=== PATIENT | male | born 1935 | race Caucasian/White ===

== ENCOUNTER 2016-07-06 07:01 | Emergency (ER) | payer MEDICARE ==
[2016-07-06 07:08] VITALS: PULSE 57; RESP 16; TEMP 96
[2016-07-06] MEDS ORDERED: SODIUM CHLORIDE 0.9% 1,000 ML IV STA (07:48)
--- NOTE | 2016-07-06 07:50 | ED ---
Recheck HPI - General Chief Complaint: Recheck/Abnormal Lab/Rx Stated Complaint: High Blood Pressure Time Seen by Provider: 07/06/16 07:25 Source: patient, RN notes reviewed Mode of arrival: ambulatory Limitations: no limitations - History of Present Illness Initial Comments: Is a 81-year-old male with a history of hypertension and heart valve replacement a year ago who states he was awakened this morning by ringing in his ears which is new Hern[place] of elevated blood pressure. He took his blood pressure home was 208/105 he denies any headache dizziness blurry vision nausea vomiting or other symptoms. Recently placed on increased dose of Norvasc 5 mg twice a day and senna once a day. He did not take his medication this morning. He does state the ringing has gotten better and he has noticed his blood pressure has improved after arrival to the emergency department. Complaint: other - Related Data Home Medications Medication Instructions Recorded Confirmed ALPRAZolam [Xanax] 0.25 mg PO DAILY PRN 06/25/13 07/06/16 Aspirin 81 mg PO DAILY 06/25/13 07/06/16 Atorvastatin [Lipitor] 20 mg PO HS 06/25/13 07/06/16 Dutasteride [Avodart] 0.5 mg PO DAILY 06/25/13 07/06/16 Tamsulosin HCl [Flomax] 0.4 mg PO DAILY 06/25/13 07/06/16 Ascorbic Acid [Vitamin C] 1,000 mg PO BID 07/31/15 07/06/16 Clopidogrel Bisulfate [Plavix] 75 mg PO DAILY 07/31/15 07/06/16 Furosemide [Lasix] 40 mg PO DAILY 07/31/15 07/06/16 Losartan [Cozaar] 50 mg PO DAILY 07/31/15 07/06/16 Ranitidine HCl [Zantac] 300 mg PO DAILY 07/31/15 07/06/16 Warfarin [Coumadin] 5 mg PO SUTUWETHSA 07/31/15 07/06/16 Warfarin [Coumadin] 7.5 mg PO MOFR 07/31/15 07/06/16 amLODIPine [Norvasc] 5 mg PO BID 07/31/15 07/06/16 Potassium Chloride ER [K-Dur 20] 20 meq PO DAILY 07/06/16 07/06/16 Allergies Allergy/AdvReac Type Severity Reaction Status Date / Time No Known Allergies Allergy Verified 07/06/16 07:08 Review of Systems ROS Statement: Those systems with pertinent positive or pertinent negative responses have been documented in the HPI. ROS Other: All systems not noted in ROS Statement are negative. 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12 History of Any Multi-Drug Resistant Organisms: None Reported Past Surgical History: Appendectomy, Back Surgery, Bowel Resection, Cardiac Valve Replacement, Heart Catheterization With Stent, Tonsillectomy Additional Past Surgical History / Comment(s): bovine aortic valve 2000 AND JUNE 19 HAD TAVR PROCEDURE, hiatal hernia repair, SKIN CANCER REMOVED FROM NECK, Past Anesthesia/Blood Transfusion Reactions: No Reported Reaction Date of Last Stent Placement:: APRIL 2015 Past Psychological History: Anxiety Additional Psychological History / Comment(s): PT LIVES AT HOME WITH HIS , W[place] IN [facility]. 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 NO SERVICE. Smoking Status: Former smoker Past Alcohol Use History: Occasional Additional Past Alcohol Use History / Comment(s): STARTED SMOKING AT AGE 16 SMOKED 40 YEARS .SMOKED LESS THAN 1 PPD. Past Drug Use History: None Reported - Past Family History Mother Family Medical History: Cancer Additional Family Medical History / Comment(s): BREAST CANCER Father Additional Family Medical History / Comment(s): IN HIS SLEEP AT AGE 96 General Exam - General Exam Comments Initial Comments: This is a well-developed well-nourished awake alert oriented 3 male Limitations: no limitations General appearance: alert, in no apparent distress Head exam: Present: atraumatic, normocephalic, normal inspection Eye exam: Present: normal appearance, PERRL, EOMI. Absent: scleral icterus, conjunctival injection, periorbital swelling ENT exam: Present: normal exam, mucous membranes moist Neck exam: Present: normal inspection. Absent: tenderness, meningismus, lymphadenopathy Respiratory exam: Present: normal lung sounds bilaterally. Absent: respiratory distress, wheezes, rales, rhonchi, stridor Cardiovascular Exam: Present: regular rate, normal rhythm, normal heart sounds. Absent: systolic murmur, diastolic murmur, rubs, gallop, clicks GI/Abdominal exam: Present: soft, normal bowel sounds. Absent: distended, tenderness, guarding, rebound, rigid Extremities exam: Present: normal inspection, full ROM, normal capillary refill. Absent: tenderness, pedal edema, joint swelling, calf tenderness Back exam: Present: normal inspection Neurological exam: Present: alert, oriented X3, CN II-XII intact Psychiatric exam: Present: normal affect, normal mood Skin exam: Present: warm, dry, intact, normal color. Absent: rash Course Vital Signs 07/06/16 07/06/16 07/06/16 07:04 07:22 08:23 Temperature 96.0 F L Pulse Rate 57 L Respiratory 16 Rate Blood Pressure 208/92 205/95 144/75 O2 Sat by Pulse 95 Oximetry Medical Decision Making - Medical Decision Making I did a long discussion with the patient regarding the findings patient's asymptomatic. No fevers chills sweats no cough or phlegm production he did have some small amount of heartburn after eating some heavy food yesterday which did resolve with Tums. He would like to go home he'll be discharged she was cautioned about recurrent heartburn to get reevaluated also. Starts developing a fever or cough or chills or sweats to seek reevaluation. His blood pressure has been very well he will take his medication when he gets home he is instructed to increase his oral fluids. - Lab Data Result diagrams: 07/06/16 08:35 07/06/16 08:35 Lab Results 07/06/16 07/06/16 07/06/16 Range/Units 08:35 08:35 08:35 WBC 5.7 (3.8-10.6) k/uL RBC 4.41 (4.30-5.90) m/uL Hgb 11.3 L (13.0-17.5) gm/dL Hct 36.5 L (39.0-53.0) % MCV 82.8 (80.0-100.0) fL MCH 25.6 (25.0-35.0) pg MCHC 30.9 L (31.0-37.0) g/dL RDW 16.6 H (11.5-15.5) % Plt Count 238 (150-450) k/uL Neutrophils % 63 % Lymphocytes % 16 % Monocytes % 10 % Eosinophils % 7 % Basophils % 1 % Neutrophils # 3.6 (1.3-7.7) k/uL Lymphocytes # 0.9 L (1.0-4.8) k/uL Monocytes # 0.6 (0-1.0) k/uL Eosinophils # 0.4 (0-0.7) k/uL Basophils # 0.1 (0-0.2) k/uL Hypochromasia Moderate Anisocytosis Slight Sodium 143 (137-145) mmol/L Potassium 4.1 (3.5-5.1) mmol/L Chloride 109 H (98-107) mmol/L Carbon Dioxide 26 (22-30) mmol/L Anion Gap 8 mmol/L BUN 26 H (9-20) mg/dL Creatinine 0.90 (0.66-1.25) mg/dL Est GFR (MDRD) Af Amer >60 (>60 ml/min/1.73 sqM) Est GFR (MDRD) Non-Af >60 (>60 ml/min/1.73 sqM) Glucose 106 H (74-99) mg/dL Calcium 9.4 (8.4-10.2) mg/dL Total Bilirubin 0.6 (0.2-1.3) mg/dL AST 18 (17-59) U/L ALT 28 (21-72) U/L Alkaline Phosphatase 51 (38-126) U/L Total Creatine Kinase 86 (55-170) U/L CK-MB (CK-2) 1.1 (0.0-2.4) ng/mL CK-MB (CK-2) Rel Index 1.3 Troponin I 0.017 (0.000-0.034) ng/mL Total Protein 6.4 (6.3-8.2) g/dL Albumin 3.6 (3.5-5.0) g/dL - EKG Data -: EKG Interpreted by Me (Atrial fibrillation rate of 47 QRS 108 QT/QTC of 504/ 446. Bundle-branch bl) - Radiology Data Radiology results: report reviewed (I did review the imaging and report there is some evidence of a right perihilar density which could reflect an infiltrate) , image reviewed Disposition Clinical Impression: Hypertension, Dehydration Disposition: HOME SELF-CARE Condition: Good Instructions: Hypertension (ED), Dehydration (ED)
[2016-07-06 08:44] LABS: Anisocytosis Slight; Basophils # (A) 0.1 k/uL (0-0.2); Basophils % (A) 1 %; CH 25.4; CHCM 30.6; Eosinophils # (A) 0.4 k/uL (0-0.7); Eosinophils % (A) 7 %; HCT 36.5 % (39.0-53.0); HDW 2.88; HGB 11.3 gm/dL (13.0-17.5); Hypochromasia Moderate; Luc % (Auto) 4; Lymphocytes # (A) 0.9 k/uL (1.0-4.8); Lymphocytes % (A) 16 %; MCH 25.6 pg (25.0-35.0); MCHC 30.9 g/dL (31.0-37.0); MCV 82.8 fL (80.0-100.0); Mean Platelet Volume 7.7; Monocytes # (A) 0.6 k/uL (0-1.0); Monocytes % (A) 10 %; Neutrophils # (A) 3.6 k/uL (1.3-7.7); Neutrophils % (A) 63 %; RBC 4.41 m/uL (4.30-5.90); RDW 16.6 % (11.5-15.5); WBC 5.7 k/uL (3.8-10.6); WBC (Perox) 5.67
--- NOTE | 2016-07-06 08:50 | XR ---
EXAMINATION TYPE: XR chest 2V DATE OF EXAM: 07/06/2016 8:47 AM COMPARISON: 07/31/2015 HISTORY: Shortness of breath TECHNIQUE: Frontal and lateral views of the chest are obtained. FINDINGS: Scattered senescent parenchymal changes noted. Hyperinflation compatible with COPD. Patchy right perihilar density may reflect developing infiltrate. Correlate clinically and progress s tudies are recommended. No evidence for atelectasis. Heart size is enlarged without evidence for overt failure. Mediastinal structures are stable and grossly unremarkable. No evidence for hilar prominence. Degenerative changes dorsal spine. IMPRESSION: 1. Patchy right perihilar density may reflect developing infiltrate. Correlate clinically and progres s studies are recommended.
[2016-07-06 08:53] LABS: ALT 28 U/L (21-72); AST 18 U/L (17-59); Alkaline Phosphatase 51 U/L (38-126); Anion Gap 8 mmol/L; Blood Urea Nitrogen 26 mg/dL (9-20); Calcium 9.4 mg/dL (8.4-10.2); Carbon Dioxide 26 mmol/L (22-30); Chloride 109 mmol/L (98-107); Glucose 106 mg/dL (74-99); Non-African American GFR(MDRD) >60 (>60 ml/min/1.73 sqM); Potassium 4.1 mmol/L (3.5-5.1); Sodium 143 mmol/L (137-145); Total Bilirubin 0.6 mg/dL (0.2-1.3); Total Protein 6.4 g/dL (6.3-8.2)
[2016-07-06 09:21] LABS: Creatine Kinase MB 1.1 ng/mL (0.0-2.4); Troponin I 0.017 ng/mL (0.000-0.034)
[2016-07-06 10:26] LABS: INR 2.9 (<1.1); Prothrombin Time 27.8 sec (9.0-12.0)
[2016-07-06] MEDS ORDERED: LOSARTAN 50 MG TAB PO STA (10:49)
[2016-07-06] MEDS ORDERED: FUROSEMIDE 40 MG TAB PO STA (10:49)
[2016-07-06] MEDS ORDERED: amLODIPine 5 MG TAB PO STA (10:49)
[2016-07-06 11:30] VITALS: BP 161/78
== END 2016-07-06 11:40 | disposition home or self-care (01) ==
LOC: EC 07:01
DX: I10 Essential (primary) hypertension (principal); E86.0 Dehydration; I48.91 Unspecified atrial fibrillation; E78.5 Hyperlipidemia, unspecified; M79.9 Soft tissue disorder, unspecified; N42.9 Disorder of prostate, unspecified; Z87.891 Personal history of nicotine dependence; Z79.82 Long term (current) use of aspirin; Z79.02 Long term (current) use of antithrombotics/antiplatelets; Z79.01 Long term (current) use of anticoagulants; Z79.899 Other long term (current) drug therapy; Z85.820 Personal history of malignant melanoma of skin; Z85.038 Personal history of other malignant neoplasm of large intestine; Z95.5 Presence of coronary angioplasty implant and graft
CPT/HCPCS: 36415; 71020; 80053; 82550; 82553; 84484; 85025; 85610; 93005; 96360; 96361; 99284

== ENCOUNTER → 2016-12-13 | Outpatient (CLI) | payer MEDICARE ==
[2016-12-13 10:48] LABS: Blood Urea Nitrogen 25 mg/dL (9-20); Non-African American GFR(MDRD) >60 (>60 ml/min/1.73 sqM)
--- NOTE | 2016-12-13 15:13 | NM ---
EXAMINATION TYPE: NM bone scan whole body DATE OF EXAM: 12/13/2016 COMPARISON: CT abdomen pelvis same date HISTORY: Prostate carcinoma, C 61.0 Delayed whole-body scanning was performed following the injection of 23.9 mCi Tc 99m MDP. Images acq uired 4 hours post injection. FINDINGS: There is uptake within the, ankles, knees, shoulders compatible with probable degenerative change. So ft tissue uptake is normal. Mild uptake in the spine likely due to degenerative disc disease, facet a rthropathy. IMPRESSION: No abnormal uptake to suggest metastatic disease. 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
--- NOTE | 2016-12-13 15:13 | CT ---
EXAMINATION TYPE: CT abdomen pelvis w con DATE OF EXAM: 12/13/2016 COMPARISON: NONE INDICATION: prostate ca, hx colon ca DLP: 2401.40 mGycm, Automated exposure control for dose reduction was used. CONTRAST: 100 mL of Omnipaque 300. Study performed with Oral Contrast TECHNIQUE: Axial images were obtained from above the diaphragm to the pubic rami in the axial plane a t 5 mm thick sections. Reconstructed images are reviewed on the computer in the coronal plane. FINDINGS: Limited CT sections are obtained the lung bases. Scattered subsegmental atelectasis may be present. A 0.4 cm nodules in the posterior left lung base. Series 4 image 3.. Coronary artery calcification i s present. Cardiomegaly is present. Hiatal hernia with reflux is present. CT ABDOMEN: Liver: There is mild fatty infiltration of the liver. Spleen: Normal Pancreas: Normal Adrenal glands: The adrenal glands are normal. Gallbladder: Normal Kidneys: No masses are evident. No hydronephrosis is present. There is a 1.7 cm cyst on the superio r lateral anterior left kidney measuring 6 Hounsfield units. There is likely a nonobstructing 0.3 cm calcification in the lateral mid right kidney. Delayed images were obtained through the kidneys, whi ch remain unremarkable. Aorta: Vascular calcification is within the aorta. Inferior vena cava: Normal. CT PELVIS: There is a left inguinal low-density collection measuring approximately 2.1 x 4.3 cm in si ze and measuring 4 Hounsfield units. Loops of bowel within the abdomen and pelvis are normal. Loops of bowel distended with oral contr ast are normal. Fecal debris is within the colon. Appendix: Not visualized Urinary bladder: Normal. Genitourinary structures: Prostate is prominent. The patient reported prostate cancer is not readily apparent on the CT examination. Osseous structures: No suspicious lytic or sclerotic lesions. Facet changes are within the lumbar spi ne no definite metastatic lesions are identified. IMPRESSIONS: 1. No suspicious changes to suggest metastatic disease.
== END ==
LOC: RADNMMAIN 09:51
PROVIDERS: ATTEND Urology
DX: C61 Malignant neoplasm of prostate (principal)
CPT/HCPCS: 82565; 84520; 74177; 78306; A9503; Q9967

== ENCOUNTER → 2016-12-31 | Outpatient (CLI) | payer MEDICARE ==
--- NOTE | 2016-12-31 16:20 | BD ---
EXAMINATION TYPE: MG DEXA axial skeleton. DATE OF EXAM: 12/31/2016 COMPARISON: NONE CLINICAL HISTORY: 81 year-old male history of prostate cancer Height: 70.5 IN Weight: 274 LBS FRAX RISK QUESTIONS: Alcohol (3 or more units per day): NO Family History (Parent hip fracture): NO Glucocorticoids (More than 3mos): NO (Ex: prednisone, prednisolone, methylprednisolone, dexamethasone, and hydrocortisone). History of Fracture in Adulthood: NO Secondary Osteoporosis: 1. Type 1 Diabetes: NO 2. Hyperthyroidism: NO 3. Menopause before 45: N/A 4. Malnutrition: NO 5. Chronic liver disease: NO Rheumatoid Arthritis: NO Current Tobacco Use: NO RISK FACTORS HISTORY OF: Surgery to Spine: L-SPINE When: AGE 76 Active: YES MEDICATIONS: Additional Medications: CALCIUM, VIT D,ALPRAZOLAM, AMLODIPINE, ASCORBIC ACID,ASPIRIN, ATORVASTATIN,CL OPIDOGREL, DUTASTERIDE, FUROSEMIDE, LOSARTAN, POTASSIUM CHLORIDE, RANITIDINE, FLOMAX, WARFARIN, Additional History: COLON CANCER WITH CHEMO IN 1990PROSTATE CANCER AGE 81 EXAM MEASUREMENTS: Bone mineral densitometry was performed using the [employer] System. PT HAD SPINE SURGERY AGE 76 Bone mineral density about the R hip (g/cm2): 1.023 Bone mineral density about the L hip (g/cm2): 1.029 T Score values are as follows: -----R Neck: -0.1 -----L Neck: -0.1 -----R Total: 1.4 -----L Total: 1.1 Bone mineral density BASELINE IMPRESSION: Normal (Values between +1 and -1 indicate normal bone mass). Measurements not taken in the lumbar sp ine due to prior surgery. Consider repeating this study in 5 years or sooner if there is some new cli nical indication. NOTE: T-SCORE=SD OF THE YOUNG ADULT MEAN.
== END | disposition home or self-care (01) ==
LOC: RADBDWWP 12-19 10:20
PROVIDERS: ATTEND Urology
DX: C61 Malignant neoplasm of prostate (principal)
CPT/HCPCS: 77080

== ENCOUNTER 2017-09-25 04:01 | Emergency (ER) | payer MEDICARE ==
[2017-09-25] MEDS ORDERED: ALBUTEROL NEBULIZED 2.5 MG/3 ML INHALATION STA (04:28)
[2017-09-25] MEDS ORDERED: SODIUM CHLORIDE 0.9% 500 ML IV STA (04:28)
--- NOTE | 2017-09-25 04:34 | ED ---
General Adult HPI - General Chief complaint: Upper Respiratory Infection Stated complaint: Chest pain Time Seen by Provider: 09/25/17 04:10 Source: patient Mode of arrival: wheelchair Limitations: no limitations - History of Present Illness Initial comments: Venkatesh is an 82-year-old male who presents the emergency department today for evaluation of possible upper respiratory tract infection. Patient reports that he saw his primary care physician approximately a week ago and was treated with azithromycin for a possible upper respiratory infection as well as possible ear infection. Patient reports that since that time he has continued to have nasal congestion, postnasal drainage and over the past 2-3 days has developed a minimally productive cough. Patient reports that throughout the night tonight he had multiple episodes of coughing, he reports that upon coughing he had some sharp pains in his chest region very anxious. Patient states that due to his history of having 2 aortic valve replacements he is very nervous when he gets sick so he came to the ER for evaluation. Patient denies any fevers, chills, nausea, vomiting. He denies any exertional chest pain or shortness of breath. He describes his cough as a constant tickle in his throat and minimally productive cough. Her ports that he has a history of having sinusitis and problems with sinuses. He has been prescribed Flonase in the past but states that he has been only moderately compliant with it recently. He is not on any daily ALLERGY medications. He does state that when he was seen by his primary care physician he was told that he had significant postnasal drip. expresses concern that he may be developing pneumonia due to the persistence of his symptoms and reports that she encouraged him to come to the ER for evaluation of this. - Related Data Home Medications Medication Instructions Recorded Confirmed ALPRAZolam [Xanax] 0.25 mg PO DAILY PRN 06/25/13 09/25/17 Aspirin 81 mg PO DAILY 06/25/13 09/25/17 Atorvastatin [Lipitor] 20 mg PO HS 06/25/13 09/25/17 Dutasteride [Avodart] 0.5 mg PO DAILY 06/25/13 09/25/17 Tamsulosin HCl [Flomax] 0.4 mg PO DAILY 06/25/13 09/25/17 Ascorbic Acid [Vitamin C] 1,000 mg PO BID 07/31/15 09/25/17 Clopidogrel Bisulfate [Plavix] 75 mg PO DAILY 07/31/15 09/25/17 Furosemide [Lasix] 40 mg PO DAILY 07/31/15 09/25/17 Losartan [Cozaar] 50 mg PO DAILY 07/31/15 09/25/17 Ranitidine HCl [Zantac] 300 mg PO DAILY 07/31/15 09/25/17 Warfarin [Coumadin] 5 mg PO SUTUWETHSA 07/31/15 09/25/17 Warfarin [Coumadin] 7.5 mg PO MOFR 07/31/15 09/25/17 amLODIPine [Norvasc] 5 mg PO DAILY 07/31/15 09/25/17 Potassium Chloride ER [K-Dur 20] 20 meq PO DAILY 07/06/16 09/25/17 Bicalutamide 50 mg PO DAILY 09/25/17 09/25/17 Previous Rx's Medication Instructions Recorded Loratadine [Claritin] 10 mg PO DAILY #30 tab 09/25/17 Allergies Allergy/AdvReac Type Severity Reaction Status Date / Time No Known Allergies Allergy Verified 07/06/16 07:08 Review of Systems ROS Statement: Those systems with pertinent positive or pertinent negative responses have been documented in the HPI. ROS Other: All systems not noted in ROS Statement are negative. 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 History of Any Multi-Drug Resistant Organisms: None Reported Past Surgical History: Appendectomy, Back Surgery, Bowel Resection, Cardiac Valve Replacement, Heart Catheterization With Stent, Tonsillectomy Additional Past Surgical History / Comment(s): bovine aortic valve 2000 AND JUNE 19 HAD TAVR PROCEDURE, hiatal hernia repair, SKIN CANCER REMOVED FROM NECK, Past Anesthesia/Blood Transfusion Reactions: No Reported Reaction Date of Last Stent Placement:: APRIL 2015 Past Psychological History: Anxiety Smoking Status: Former smoker Past Alcohol Use History: Occasional Past Drug Use History: None Reported - Past Family History Mother Family Medical History: Cancer Additional Family Medical History / Comment(s): BREAST CANCER Father Additional Family Medical History / Comment(s): IN HIS SLEEP AT AGE 96 General Exam Limitations: no limitations General appearance: alert, in no apparent distress Head exam: Present: atraumatic, normocephalic Eye exam: Present: normal appearance, PERRL ENT exam: Present: other (Right TM is normal, left TM somewhat occluded by cerumen impaction) Neck exam: Present: normal inspection Respiratory exam: Present: wheezes Cardiovascular Exam: Present: regular rate, irregular rhythm GI/Abdominal exam: Present: soft. Absent: distended, tenderness Rectal exam: Present: deferred Extremities exam: Present: pedal edema Neurological exam: Present: alert, oriented X3 Psychiatric exam: Present: normal affect, normal mood Skin exam: Present: warm, dry Course Vital Signs 09/25/17 09/25/17 09/25/17 04:06 04:34 04:37 Temperature 97.8 F Pulse Rate 65 55 L Respiratory 20 18 Rate Blood Pressure 190/90 O2 Sat by Pulse 98 Oximetry 09/25/17 09/25/17 04:43 05:40 Temperature 98.4 F Pulse Rate 54 L 60 Respiratory 16 Rate Blood Pressure 163/74 O2 Sat by Pulse 99 Oximetry Medical Decision Making - Medical Decision Making Patient was seen and evaluated, history was obtained from the patient and his at bedside Patient with evidence of acute sinusitis, significant postnasal drip, cerumen impaction in the left ear Patient with no Sirs criteria. A nonproductive cough, no fevers or chills. Labs and imaging were ordered to evaluate for possible early pneumonia Chest x-ray with cardiomegaly and some fluid overload but no obvious pneumonia Labs and no significant abnormalities, INR 2.2 Results were discussed with the patient at bedside. At this time I feel the patient is suffering from sinusitis, with persistent cough due to postnasal drip. Patient admits to being minimally compliant with his Flonase which she has been prescribed. Patient is not on any ALLERGY medication. At this time I feel the patient would benefit from daily use of Flonase as well as an antihistamine such as Claritin. I discussed this with the patient and his who agree. Advised the patient that should he develop any worsening shortness of breath, productive cough, fevers, chest pain or any new or concerning symptoms he should return to the ER for reevaluation. Otherwise he should be reevaluated by his primary care physician tomorrow and all questions pertaining care were answered best my ability patient was discharged home in stable condition with prescriptions for Claritin as he has Flonase at home. - Lab Data Result diagrams: 09/25/17 04:18 09/25/17 04:18 Lab Results 09/25/17 09/25/17 09/25/17 Range/Units 04:18 04:18 04:18 WBC 6.5 (3.8-10.6) k/uL RBC 4.34 (4.30-5.90) m/uL Hgb 13.3 (13.0-17.5) gm/dL Hct 39.9 (39.0-53.0) % MCV 91.9 (80.0-100.0) fL MCH 30.7 (25.0-35.0) pg MCHC 33.4 (31.0-37.0) g/dL RDW 14.1 (11.5-15.5) % Plt Count 214 (150-450) k/uL Neutrophils % 67 % Lymphocytes % 18 % Monocytes % 8 % Eosinophils % 4 % Basophils % 1 % Neutrophils # 4.4 (1.3-7.7) k/uL Lymphocytes # 1.2 (1.0-4.8) k/uL Monocytes # 0.5 (0-1.0) k/uL Eosinophils # 0.2 (0-0.7) k/uL Basophils # 0.0 (0-0.2) k/uL PT (9.0-12.0) sec INR (<1.2) APTT (22.0-30.0) sec Sodium 136 L (137-145) mmol/L Potassium 4.1 (3.5-5.1) mmol/L Chloride 101 (98-107) mmol/L Carbon Dioxide 27 (22-30) mmol/L Anion Gap 8 mmol/L BUN 29 H (9-20) mg/dL Creatinine 0.90 (0.66-1.25) mg/dL Est GFR (CKD-EPI)AfAm >90 (>60 ml/min/1.73 sqM) Est GFR (CKD-EPI)NonAf 79 (>60 ml/min/1.73 sqM) Glucose 101 H (74-99) mg/dL Calcium 9.9 (8.4-10.2) mg/dL Magnesium 1.9 (1.6-2.3) mg/dL Troponin I (0.000-0.034) ng/mL NT-Pro-B Natriuret Pep 487 pg/mL 09/25/17 09/25/17 Range/Units 04:18 04:18 WBC (3.8-10.6) k/uL RBC (4.30-5.90) m/uL Hgb (13.0-17.5) gm/dL Hct (39.0-53.0) % MCV (80.0-100.0) fL MCH (25.0-35.0) pg MCHC (31.0-37.0) g/dL RDW (11.5-15.5) % Plt Count (150-450) k/uL Neutrophils % % Lymphocytes % % Monocytes % % Eosinophils % % Basophils % % Neutrophils # (1.3-7.7) k/uL Lymphocytes # (1.0-4.8) k/uL Monocytes # (0-1.0) k/uL Eosinophils # (0-0.7) k/uL Basophils # (0-0.2) k/uL PT 19.8 H (9.0-12.0) sec INR 2.2 H (<1.2) APTT 27.7 (22.0-30.0) sec Sodium (137-145) mmol/L Potassium (3.5-5.1) mmol/L Chloride (98-107) mmol/L Carbon Dioxide (22-30) mmol/L Anion Gap mmol/L BUN (9-20) mg/dL Creatinine (0.66-1.25) mg/dL Est GFR (CKD-EPI)AfAm (>60 ml/min/1.73 sqM) Est GFR (CKD-EPI)NonAf (>60 ml/min/1.73 sqM) Glucose (74-99) mg/dL Calcium (8.4-10.2) mg/dL Magnesium (1.6-2.3) mg/dL Troponin I 0.013 (0.000-0.034) ng/mL NT-Pro-B Natriuret Pep pg/mL Disposition Clinical Impression: Sinusitis Disposition: HOME SELF-CARE Condition: Good Instructions: Upper Respiratory Infection (ED) Prescriptions: Loratadine [Claritin] 10 mg PO DAILY #30 tab Is patient prescribed a controlled substance at d/c from ED?: No Referrals: Jhony,Seble, DO [Primary Care Provider] - 1-2 days Time of Disposition: 05:42
[2017-09-25 04:42] LABS: Basophils % (A) 1 %; Eosinophils # (A) 0.2 k/uL (0-0.7); Eosinophils % (A) 4 %; HCT 39.9 % (39.0-53.0); HGB 13.3 gm/dL (13.0-17.5); Lymphocytes # (A) 1.2 k/uL (1.0-4.8); Lymphocytes % (A) 18 %; MCH 30.7 pg (25.0-35.0); MCHC 33.4 g/dL (31.0-37.0); MCV 91.9 fL (80.0-100.0); Mean Platelet Volume 6.9; Monocytes # (A) 0.5 k/uL (0-1.0); Monocytes % (A) 8 %; Neutrophils # (A) 4.4 k/uL (1.3-7.7); Neutrophils % (A) 67 %; Platelet Count 214 k/uL (150-450); RBC 4.34 m/uL (4.30-5.90); RDW 14.1 % (11.5-15.5); WBC 6.5 k/uL (3.8-10.6)
[2017-09-25 04:48] LABS: INR 2.2 (<1.2); Partial Thromboplastin Time 27.7 sec (22.0-30.0); Prothrombin Time 19.8 sec (9.0-12.0)
[2017-09-25 04:49] LABS: Anion Gap 8 mmol/L; Blood Urea Nitrogen 29 mg/dL (9-20); Calcium 9.9 mg/dL (8.4-10.2); Carbon Dioxide 27 mmol/L (22-30); Chloride 101 mmol/L (98-107); Glucose 101 mg/dL (74-99); Magnesium 1.9 mg/dL (1.6-2.3); Potassium 4.1 mmol/L (3.5-5.1); Sodium 136 mmol/L (137-145)
--- NOTE | 2017-09-25 05:21 | XR ---
EXAM: XR Chest, 2 Views. CLINICAL HISTORY: Reason: cough TECHNIQUE: Frontal and lateral views of the chest. COMPARISON: 07/06/16 FINDINGS: Lungs: Lung volumes are within normal limits. No airspace consolidation. Mildly prominent interstitial markings may be secondary to interstitial edema. Pleural spaces: No pneumothorax. No significant pleural effusions. Heart: Moderate cardiomegaly, unchanged. Mediastinum: No mediastinal widening or shift. Bones: No acute fracture. Sternotomy wires again seen, the inferior most of which is fractured. IMPRESSION: Moderate cardiomegaly and mild interstitial edema. Please correlate for symptoms of mild congestive heart failure or volume overload. No airspace consolidation. No significant pleural effusion. No pneumothorax.
[2017-09-25 05:41] VITALS: BP 163/74; PULSE 60; RESP 16; TEMP 98.4
== END 2017-09-25 05:52 | disposition home or self-care (01) ==
LOC: EC 04:01
DX: J01.90 Acute sinusitis, unspecified (principal); H61.22 Impacted cerumen, left ear; R07.9 Chest pain, unspecified; I48.91 Unspecified atrial fibrillation; E78.5 Hyperlipidemia, unspecified; I10 Essential (primary) hypertension; N42.9 Disorder of prostate, unspecified; F41.9 Anxiety disorder, unspecified; Z85.038 Personal history of other malignant neoplasm of large intestine; Z95.5 Presence of coronary angioplasty implant and graft; Z95.4 Presence of other heart-valve replacement; Z85.820 Personal history of malignant melanoma of skin; Z87.891 Personal history of nicotine dependence; Z79.82 Long term (current) use of aspirin; Z79.02 Long term (current) use of antithrombotics/antiplatelets; Z79.01 Long term (current) use of anticoagulants; Z79.899 Other long term (current) drug therapy
CPT/HCPCS: 36415; 71046; 80048; 83735; 83880; 84484; 85025; 85610; 85730; 94640; 99284